=== PATIENT | female | born 1965 | race American Indian/Alaskan Native ===

== ENCOUNTER 2021-02-20 12:59 | Outpatient (CLI) | payer OTHER ==
--- NOTE | 2021-02-20 15:15 | XRay Report ---
CHEST 2 VIEWS INDICATION / CLINICAL INFORMATION: R76.11. COMPARISON: None available. FINDINGS: SUPPORT DEVICES: None. HEART / MEDIASTINUM: No significant abnormality. LUNGS / PLEURA: No significant pulmonary or pleural abnormality. No pneumothorax. ADDITIONAL FINDINGS: No significant additional findings. IMPRESSION: 1. No acute findings. Signer Name: Ean Leiva MD Signed: 02/20/2021 3:09 PM Workstation Name: [id number]
== END 2021-02-20 13:00 | disposition home or self-care (01) ==
LOC: XRAY 12:59
PROVIDERS: ATTEND Internal Medicine Gastroenterology
DX: R76.11 Nonspecific reaction to tuberculin skin test without active tuberculosis (principal)
CPT/HCPCS: 71046